=== PATIENT | male | born 1940 | race Caucasian/White ===

== ENCOUNTER → 2019-07-03 | Day surgery (SDC) | payer BC ==
[~2019-07-03] MED LIST: CLONIDINE HCL0.2 M2 PO; COREG25 MG PO; COZAAR100 MG PO; DILTIAZEM ER240 M2 PO; IRON IV; LANTUS SUBQ; LASIX 80 MG TAB80 MG PO; LIPITOR80 MG PO; RENAL-VITE TAB0.8 MG PO; TERAZOSIN HCL10 MG PO; TYLENOL325 MG PO; ZETIA10 MG PO
--- NOTE | ~2019-07-03 | OP ---
[facility] [address] [place] [address] OPERATIVE REPORT Name: EVER JACINTO Room: [facility]#: [id number] Admission: 07/03/19 Attend Phys: Acosta Lino Discharge: Date of : 42 Report #: [id number] THIS REPORT FOR: //name// cc: Elda Laboy MD, Pamela MD ~ THIS REPORT FOR: //name// CC: Acosta Laboy DATE OF SERVICE: 07/03/2019 PREOPERATIVE DIAGNOSIS: End-stage renal disease. POSTOPERATIVE DIAGNOSIS: End-stage renal disease. OPERATIONS: 1. Diagnostic laparoscopy. 2. Revision of peritoneal catheter with removal of obstructing material. 3. Lysis of adhesions. SURGEON: Acosta Lino MD ANESTHESIA: General. ESTIMATED BLOOD LOSS: Minimal. SPECIMEN: None. DESCRIPTION OF PROCEDURE: After informed consent was obtained, the patient was brought to the operating room and placed supine. SCDs were placed and working, preoperative antibiotics were administered, general anesthesia was induced. The abdomen was prepped and draped in the usual sterile fashion. A 5 mm incision was made in the left upper quadrant. A 5 mm trocar was placed under direct vision. Pneumoperitoneum was established. A left-sided 5 mm trocar was placed. I was able to visualize the catheter in the pelvis. There was adhesive band from the mesentery to the pelvic sidewall on the left side and this did not trap the catheter. I was able to lyse this band. This allowed for free movement of the catheter. Catheter was then flushed with heparinized saline. It flushed very well. There was some fibrinous material that was removed. The catheter was then flushed with 600 mL of heparinized normal saline. 200 mL was allowed to drain out and this drained out very well. The ports were removed under direct vision. The skin was closed with 4-[address] [place] [address] OPERATIVE REPORT Name: EVER JACINTO Vy Room: [facility]#: [id number] Admission: 07/03/19 Attend Phys: Acosta Lino Discharge: Date of : 42 Report #: [id number] Monocryl. Incisions were sealed with Dermabond. COMPLICATIONS: None. DISPOSITION: The patient was taken to recovery in satisfactory condition. By: [id number] Lino MD /jennifer
[2019-07-03 07:35] LABS: HEMATOCRIT 28.9 % (42.0-52.0); HEMOGLOBIN 9.8 gm/dL (14.0-18.0); MCH 28.7 pg (26.0-34.0); MCV 84.3 fL (80.0-100.0); RBC 3.43 mil/uL (4.50-6.00); RDW-CV 14.6 % (10.5-14.5); WBC 7.2 thou/uL (4.0-11.0)
[2019-07-03 07:46] LABS: CALCIUM 7.6 mg/dL (8.5-10.1); CREATININE 5.3 mg/dL (0.6-1.3); POTASSIUM 3.6 mmol/L (3.5-5.1)
[2019-07-03 07:50] LABS: ALBUMIN 2.3 g/dL (3.4-5.0); TOTAL BILIRUBIN 0.2 mg/dL (<0.1-1.0); TOTAL PROTEIN 5.4 g/dL (6.4-8.2)
--- NOTE | 2019-07-03 10:58 | EKG ---
[place] [address] ELECTROCARDIOGRAM REPORT Name: EVER JACINTO Room: [facility]#: [id number] Admission: 07/03/19 Attend Phys: Acosta Jacobs Discharge: Date of : 42 Date of Service: 07/03/1942 Report #: [id number] THIS REPORT FOR: //name// [facility] Test Date: 2019-07-03 Test Time: 07:43:11 Pat Name: EVER JACINTO Department: Room: Gender: Dispersion Mixer: : 1940 Requested By: Acosta Lino Order Number: [id number] MD: William Shen Measurements Intervals [place] Rate: 56 P: 8 WA: 232 QRS: 23 QRSD: 112 T: 59 QT: 500 QTc: 483 Interpretive Statements Sinus rhythm Prolonged [place] interval Borderline intraventricular conduction delay Borderline prolonged QT interval No previous ECG available for comparison Electronically Signed On 07-03-2019 10:56:40 CDT by William Shen [email or web address] <ELECTRONICALLY SIGNED> By: William Shen MD, [facility] 07/03/19 1056 0743 William Shen MD, [facility] /EPI
== END | disposition home or self-care (01) ==
LOC: M.SUR 06:43
PROVIDERS: Surgery
DX: I12.0 Hypertensive chronic kidney disease with stage 5 chronic kidney disease or end stage renal disease (principal); N18.6 End stage renal disease; Z98.890 Other specified postprocedural states; Z79.899 Other long term (current) drug therapy